=== PATIENT | female | born 1960 | race Caucasian/White ===

== ENCOUNTER 2017-05-29 20:45 | Observation (INO) | payer BC, OTHER ==
[~2017-05-29] VITALS: Ht 167.6 cm; Wt 62.5 kg
[~2017-05-29 20:45] MED LIST: LISINOPRIL10 MG PO; MACROBID100 MG PO; PERCOCET 5/31 TABLET PO; VESICARE10 MG PO; VESICARE5 MG PO; ZESTRIL10 MG PO
[2017-05-29 22:35] LABS: HEMATOCRIT 33.3 % (36.0-46.0); MCH 28.2 PG (29.0-34.0); MCHC 32.1 G/DL (30.0-36.0); MCV 87.9 FL (83-99); MEAN PLAT.VOLUME 9.5 uM^3 (9.5-12.4); PLATELET COUNT 217 K/uL (156-360); RBC DIS.WIDTH-SD 47.9 % (39-53); RED BLOOD COUNT 3.79 M/uL (3.80-5.20); WHITE BLOOD COUNT 5.8 K/uL (4.1-10.2)
[2017-05-29 22:47] LABS: CHLORIDE 105 mEq/L (99-109); POTASSIUM 3.7 mEq/L (3.7-5.4); SODIUM 139 mEq/L (136-147)
[2017-05-29 22:50] LABS: GLUCOSE 107 mg/dL (70-99)
[2017-05-29 22:51] LABS: ANION GAP 11 MEQ/L (2-14); TOTAL BILIRUBIN 0.4 mg/dL (0.0-1.0)
[2017-05-29 22:53] LABS: ALKALINE PHOSPHATASE 74 IU/L (3-129); GFR ESTIMATE (CALCULATED) > 59 mL/min/
[2017-05-29 22:54] LABS: UREA NITROGEN (BUN) 9 mg/dL (9-23)
[2017-05-29] MEDS ORDERED: SYNTHROID75 MCG PO (23:51)
[2017-05-29] MEDS ORDERED: NORVASC10 MG PO (23:52)
[2017-05-30 01:16] VITALS: BP 139/88
[2017-05-30 04:00] VITALS: BP 112/73
[2017-05-30 07:51] VITALS: BP 130/85
== END 2017-05-30 11:30 | disposition home or self-care (01) ==
LOC: EME 20:45 → 5WEST 23:46 → EDOF 23:46 → ENRESERV 23:49 → 5WEST 05-30 00:56
PROVIDERS: Physician Assistant
DX: T78.3XXA Angioneurotic edema, initial encounter (principal); T50.8X5A Adverse effect of diagnostic agents, initial encounter; C67.7 Malignant neoplasm of urachus; I10 Essential (primary) hypertension; E03.9 Hypothyroidism, unspecified
CPT/HCPCS: 80053; 85027; 93005; 99281; 99284; G0378; J1200; J1650; J2930; J7030; S0028

== ENCOUNTER 2017-08-02 18:43 | Emergency (ER) | payer BC, OTHER ==
[~2017-08-02] VITALS: Ht 167.6 cm; Wt 62.6 kg
[~2017-08-02 18:43] MED LIST changes: +MOTRIN IB200 MG PO; +NORVASC10 MG PO; +REGLAN10 MG PO; +SENNA8.6 MG PO; +SYNTHROID75 MCG PO; +ZOFRAN8 MG PO
[2017-08-02 19:26] VITALS: BP 136/90
== END 2017-08-02 19:26 | disposition home or self-care (01) ==
LOC: EME 18:43
DX: Z45.2 Encounter for adjustment and management of vascular access device (principal); C67.9 Malignant neoplasm of bladder, unspecified; Z92.21 Personal history of antineoplastic chemotherapy
CPT/HCPCS: 99281; 99283